=== PATIENT | male | born 1975 | race Hispanic/Latino ===

== ENCOUNTER 2017-06-03 06:56 | Emergency (ER) | payer OTHER ==
--- NOTE | 2017-06-03 08:11 | ED PDOC ---
HPI: General Adult Time Seen by Provider: 06/03/17 08:00 Chief Complaint (Nursing): ENT Problem Chief Complaint (Provider): ENT Problem History Per: Patient History/Exam Limitations: no limitations Onset/Duration Of Symptoms: Days (x 2) Current Symptoms Are (Timing): Still Present Additional Complaint(s): 42 year old male who presents to the ED complaining of a mass on the right side of his neck, onset 2 days ago. Patient reports that he began to notice the mass two days ago and it has since grown significantly, He describes the mass as "tender". He says that it hurts when he chews. Reports normal swallowing and breathing. The patient saw an urgent care doctor two days ago who measured the mas at 1 cm. Presently the mass is estimated to be 3-4 cm. Denies tooth ache or any recent dental work. PMD: Dr. Vani Hull MD Past Medical History Reviewed: Historical Data, Nursing Documentation, Vital Signs Vital Signs: Last Vital Signs Temp 98.7 F 06/03/17 11:52 Pulse 89 06/03/17 11:52 Resp 19 06/03/17 11:52 BP 118/79 06/03/17 11:52 Pulse Ox 96 06/03/17 14:30 - Medical History PMH: Depression, Gall Bladder Disease, Hepatitis (C) - Surgical History Surgical History: Hernia Repair - Family History Family History: States: No Known Family Hx - Home Medications Home Medications: Ambulatory Orders Medication Instructions Recorded No Known Home Med 06/03/17 - Allergies Allergies/Adverse Reactions: Allergies Allergy/AdvReac Type Severity Reaction Status Date / Time Penicillins Allergy ANGIOEDEMA Verified 06/03/17 07:08 Review of Systems ROS Statement: Except As Marked, All Systems Reviewed And Found Negative Musculoskeletal: Positive for: Neck Pain (from mass growing on neck) Physical Exam - Reviewed Nursing Documentation Reviewed: Yes Vital Signs Reviewed: Yes - Physical Exam Appears: Positive for: Non-toxic, No Acute Distress Head Exam: Positive for: ATRAUMATIC, NORMOCEPHALIC Skin: Positive for: Normal Color, Warm, Dry Eye Exam: Positive for: Normal appearance, PERRL ENT: Positive for: Normal ENT Inspection, Pharynx Is (normal; uvula midline). Negative for: Nasal Congestion, Pharyngeal Erythema, Tonsillar Exudate, Tonsillar Swelling Neck: Positive for: Painless ROM (3-4 cm tender mass on right side]). Negative for: Normal Cardiovascular/Chest: Positive for: Regular Rate, Rhythm. Negative for: Murmur Respiratory: Positive for: Normal Breath Sounds. Negative for: Wheezing Gastrointestinal/Abdominal: Positive for: Normal Exam, Soft Back: Positive for: Normal Inspection. Negative for: L CVA Tenderness, R CVA Tenderness, Vertebral Tenderness Extremity: Positive for: Normal ROM Neurologic/Psych: Positive for: Alert, Oriented - Laboratory Results Result Diagrams: 06/03/17 08:24 06/03/17 08:24 - ECG O2 Sat by Pulse Oximetry: 96 (RA) Pulse Ox Interpretation: Normal Medical Decision Making Medical Decision Making: Time: 08:03 Initial Plan: Right submandibular lymphadenopathy r/o Bailey r/o abscess --CT neck soft tissue --CMP --CBC --Bailey (Infectious disease) Accession No. 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 Regional asymmetrical right sided parapharyngeal lymphatic soft tissue fullness as detailed above -obliterating the right piriform sinus. Concomitant pathology here - not excluded. ENT consultation follow-up recommended The findings regarding the right submandibular proper may relate to mumps and/ or mononucleosis. Inflammatory changes affect the right submandibular fat, the right platysmas muscle and the right subcutaneous fat. A cellulitis here and/ or lymphedema here is inferred. No abscess seen . No intrinsic right submandibular mass appreciated. Diffuse asymmetrical swelling enlargement of the right submandibular gland is suggested Patient's Bailey results came back positive. CT results reviewed with Radiologist Dr. Moss and she just recommends ENT follow up but no abscess or anything urgent. Airway patent. Case discussed with patient and his . I explained that there are some findings on the CT that need ENT follow up and gave them discharge instructions with Dr. Engel for follow up. They were advised on mono supportive care measures especially to keep hydrated. They are aware of possible of being contagious and to avoid any potential activities that may injure abdomen. Work note provided. On reevaluation, he is comfortable and tolerating at normal speech. No trouble breathing. Will have him follow up also with his PMD. Scribe Attestation: Documented by Alena Ayers, acting as a scribe for Oral Condon DO Provider Scribe Attestation: All medical record entries made by the Scribe were at my direction and personally dictated by me. I have reviewed the chart and agree that the record accurately reflects my personal performance of the history, physical exam, medical decision making, and the department course for this patient. I have also personally directed, reviewed, and agree with the discharge instructions and disposition. Disposition - Clinical Impression Clinical Impression: EBV (Joseph-Sawant virus) viremia - Disposition Referrals: Vani Hull MD [Medical Doctor] - Robert Engel MD [Staff Provider] - Disposition: Routine/Home Disposition Time: 11:45 Condition: IMPROVED Additional Instructions: Mr Lockett, thank you for letting us take care of you today. Your provider was Dr. Condon. You were treated for Bailey, enlarged lymph node. The emergency medical care you received today was directed at your acute symptoms. If you were prescribed any medication, please fill it and take as directed. It may take several days for your symptoms to resolve. Return to the Emergency Department if your symptoms worsen, do not improve, or if you have any other problems. Make sure to make an appointment to follow up with an ENT specialist in 1 week. Please contact your doctor or call one of the physicians/clinics you have been referred to that are listed on the Patient Visit Information form that is included in your discharge packet. Bring any paperwork you were given at discharge with you along with any medications you are taking to your follow up visit. Our treatment cannot replace ongoing medical care by a primary care provider (PCP) outside of the emergency department. Thank you for allowing the [facility] team to be part of your care today. If you had an X-Ray or CT scan: A Radiologist will review the ED reading if any change in treatment is needed we will contact you. If you had a blood, urine, or wound culture: It will take several days for the results, if any change in treatment is needed we will contact you. If you had an STI test: It will take 48 hours for the results. Please call after 1 week if you have not heard back. Instructions: Mononucleosis (ED) Forms: [employer] (Arabic), [facility] ED School/Work Excuse - POA Present On Arrival: None
[2017-06-03 08:33] LABS: HEMOGLOBIN 14.9 g/dL (12.0-18.0); MEAN CELL VOLUME 83.3 fl (80.0-94.0); MEAN CORPUSCULAR HEMOGLOBIN 28.9 pg (27.0-31.0); MEAN CORPUSCULAR HGB CONC 34.7 g/dL (33.0-37.0); RBC 5.16 Mil/uL (4.40-5.90); RED CELL DISTRIBUTION WIDTH 14.4 % (11.5-14.5); WHITE BLOOD COUNT 8.8 K/uL (4.8-10.8)
[2017-06-03 08:54] LABS: ALB/GLOB RATIO 1.3 (1.0-2.1); ALBUMIN 4.1 g/dL (3.5-5.0); ALT/SGPT 40 U/L (21-72); AST/SGOT 20 U/L (17-59); BLOOD UREA NITROGEN 18 mg/dl (9-20); CALCIUM 9.4 mg/dL (8.4-10.2); GFR AFRICAN-AMERICAN > 60; GFR NON-AFRICAN AMERICAN > 60
[2017-06-03] MEDS ORDERED: Iohexol 300 100 ML IJ ONE (09:19)
[2017-06-03] MEDS ORDERED: Sodium Chloride 0.9% 50 ML IV ONE (09:19)
--- NOTE | 2017-06-03 11:47 | CT ---
PROCEDURE: CT NECK WITH CONTRAST HISTORY: right subman mass x 2 days COMPARISON: None TECHNIQUE: CT of the neck with intravenous contrast. Coronal and sagittal reformats generated. Intravenous contrast dose: 95 cc Omnipaque 300 Radiation dose: DLP 549 mGy-cm This CT exam was performed using one or more of the following dose reduction techniques: Automated exposure control, adjustment of the mA and/or kV according to patient size, and/or use of iterative reconstruction technique. FINDINGS: Dental amalgam artifact an obscures some of the oral cavity NASOPHARYNX: Unremarkable. SUPRAHYOID NECK: Unremarkable oral cavity. There is asymmetrical fullness to the parapharyngeal lymphatic soft tissue also including the lingular base. There is asymmetrical right sided lymphatic lending soft tissue fullness continues inferiorly along the right parapharyngeal soft tissues down to the hyoid bone level with obliteration of the right piriform sinus. The soft tissue asymmetrical right-sided fullness blends with the soft tissue surrounding the right hyoid bone under than further laterally contiguous with the asymmetrically enlarged right mandibular gland. No discrete abscess is noted. sp INFRAHYOID NECK: The above asymmetries/ obliteration of the air within the right piriform sinus may contribute to some minimal distorting of the right false vocal cords. This is minimal at most FNA. True cords appear unremarkable. GLANDS: Parotid and left submandibular glands unremarkable. Normal size thyroid gland, without nodule. There is asymmetrical prominence of the right submandibular gland without focal right submandibular mass per se identified. On axial series 2, image 55 the right submandibular gland measures 3.5 x 2.3 cm whereas the left measures 2.3 x 1.4 cm. There is right submandibular gland surrounding fat infiltration and right platysmal surrounding inflammatory changes extending into the overlying right skin subcutaneous fat (axial series 2 image 55). There is minimal right strap muscle tear inflammatory changes in the surrounding fat is well suggested this is at the thyroid cartilage level. . No dilated salivary gland ducts or gross calculi here suggested. LYMPH NODES: Bilateral cervical lymph nodes are present. Hyperplastic lymph nodes are favored. These are at the jugulodigastric- - level 2 level most notably CERVICAL SPINE: No fracture or focal lesion. VASCULAR STRUCTURES: Unremarkable. OTHER FINDINGS: None. IMPRESSION: Asymmetrically/swollen appearing right submandibular gland with regional benign hyperplastic appearing lymph nodes. Regional asymmetrical right sided parapharyngeal lymphatic soft tissue fullness as detailed above -obliterating the right piriform sinus. Concomitant pathology here - not excluded. ENT consultation follow-up recommended The findings regarding the right submandibular proper may relate to mumps and/or mononucleosis. Inflammatory changes affect the right submandibular fat, the right platysmas muscle and the right subcutaneous fat. A cellulitis here and/or lymphedema here is inferred. No abscess seen . No intrinsic right submandibular mass appreciated. Diffuse asymmetrical swelling enlargement of the right submandibular gland is suggested .
[2017-06-03 11:53] VITALS: BP 118/79; PULSE 89; RESP 19; TEMP 98.7
[2017-06-03 14:17] VITALS: O2SAT 96
== END 2017-06-03 11:53 | disposition home or self-care (01) ==
LOC: H.ER 06:56
DX: B27.90 Infectious mononucleosis, unspecified without complication (principal); I89.0 Lymphedema, not elsewhere classified; Z88.0 Allergy status to penicillin; F32.9 Major depressive disorder, single episode, unspecified
CPT/HCPCS: 70491; 80053; 85027; 86308; 87040; 99283; Q9967

== ENCOUNTER 2017-07-17 09:33 | Emergency (ER) | payer OTHER ==
[2017-07-17 09:38] VITALS: BMI 30.6
[2017-07-17 09:39] VITALS: BP 124/87; PULSE 101; RESP 17; TEMP 98; O2SAT 97
--- NOTE | 2017-07-17 10:22 | RAD ---
HISTORY: SOB after drug use COMPARISON: No prior. TECHNIQUE: Chest PA and lateral FINDINGS: LUNGS: No active pulmonary disease. PLEURA: No significant pleural effusion identified. No pneumothorax apparent. CARDIOVASCULAR: Normal. OSSEOUS STRUCTURES: No significant abnormalities. VISUALIZED UPPER ABDOMEN: Normal. OTHER FINDINGS: None. IMPRESSION: No active disease.
[2017-07-17] MEDS ORDERED: Sodium Chloride 0.9% 1,000 ML IV STA (10:33)
[2017-07-17 10:35] LABS: BASO # 0.1 K/uL (0.0-0.2); BASO % 0.9 % (0.0-2.0); EOS % 0.1 % (0.0-4.0); HEMOGLOBIN 15.4 g/dL (12.0-18.0); LYMPH % 18.2 % (20.0-40.0); MEAN CELL VOLUME 84.9 fl (80.0-94.0); MEAN CORPUSCULAR HEMOGLOBIN 29.5 pg (27.0-31.0); MEAN CORPUSCULAR HGB CONC 34.7 g/dL (33.0-37.0); MEAN PLATELET VOLUME 7.5 fl (7.2-11.7); MONO # 0.8 K/uL (0.0-0.8); MONO % 7.6 % (0.0-10.0); NEUT # 8.1 K/uL (1.8-7.0); NEUT % 73.2 % (50.0-75.0); RBC 5.22 Mil/uL (4.40-5.90); RED CELL DISTRIBUTION WIDTH 13.1 % (11.5-14.5); WHITE BLOOD COUNT 11.1 K/uL (4.8-10.8)
[2017-07-17 10:45] LABS: ALB/GLOB RATIO 1.3 (1.0-2.1); ALBUMIN 4.5 g/dL (3.5-5.0); ALT/SGPT 35 U/L (21-72); AST/SGOT 24 U/L (17-59); BLOOD UREA NITROGEN 11 mg/dl (9-20); CALCIUM 9.7 mg/dL (8.4-10.2); GFR AFRICAN-AMERICAN > 60; GFR NON-AFRICAN AMERICAN > 60
[2017-07-17 10:53] LABS: ACETAMINOPHEN < 10.0 ug/ml (10.0-30.0); SALICYLATE < 1.0 mg/dl
[2017-07-17 11:10] LABS: BARBITURATES, UR NEGATIVE (NEGATIVE); BENZODIAZEPINES, UR NEGATIVE (NEGATIVE); OPIATES, UR NEGATIVE (NEGATIVE); PHENCYCLIDINE, UR NEGATIVE (NEGATIVE)
--- NOTE | 2017-07-17 11:11 | ED PDOC ---
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 PT states he began using again because his left him. No chest pain. 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 Past Medical History Reviewed: Historical Data, Nursing Documentation, Vital Signs Vital Signs: Last Vital Signs Temp 98 F 07/17/17 09:38 Pulse 101 H 07/17/17 09:38 Resp 17 07/17/17 09:38 BP 124/87 07/17/17 09:38 Pulse Ox 97 07/17/17 09:38 - Medical History PMH: Depression, Gall Bladder Disease, Hepatitis (C) - Surgical History Surgical History: Hernia Repair - Family History Family History: States: No Known Family Hx - Living Arrangements Living Arrangements: With Family - Social History Current smoker - smoking cessation education provided: No Alcohol: None Drugs: Cocaine - Home Medications Home Medications: Ambulatory Orders Medication Instructions Recorded No Known Home Med 06/03/17 - Allergies Allergies/Adverse Reactions: Allergies Allergy/AdvReac Type Severity Reaction Status Date / Time Penicillins Allergy ANGIOEDEMA Verified 06/03/17 07:08 Review of Systems ROS Statement: Except As Marked, All Systems Reviewed And Found Negative Constitutional: Negative for: Fever Cardiovascular: Negative for: Chest Pain Respiratory: Positive for: Shortness of Breath. Negative for: Cough Gastrointestinal: Negative for: Nausea, Abdominal Pain Physical Exam - Reviewed Nursing Documentation Reviewed: Yes Vital Signs Reviewed: Yes - Physical Exam Appears: Positive for: Well, Non-toxic, No Acute Distress Head Exam: Positive for: ATRAUMATIC, NORMAL INSPECTION, NORMOCEPHALIC Skin: Positive for: Normal Color, Warm, DRY Eye Exam: Positive for: Normal appearance, EOMI, PERRL ENT: Positive for: Normal ENT Inspection Neck: Positive for: Normal, Painless ROM Cardiovascular/Chest: Positive for: Regular Rate, Rhythm Respiratory: Positive for: CNT, Normal Breath Sounds Gastrointestinal/Abdominal: Positive for: Normal Exam, Bowel Sounds, Soft Back: Positive for: Normal Inspection Extremity: Positive for: Normal ROM Neurologic/Psych: Positive for: Alert, Oriented - Laboratory Results Result Diagrams: 07/17/17 10:25 07/17/17 10:25 - ECG O2 Sat by Pulse Oximetry: 97 Medical Decision Making Medical Decision Making: Pt reports feeling better on re-evaluation. Tropinin (-) No chest pain. Pt denies HI/SI Disposition - Clinical Impression Clinical Impression: Cocaine abuse - Disposition Referrals: Vani Hull MD [Primary Care Provider] - Disposition: Routine/Home Disposition Time: 12:36 Condition: STABLE Instructions: Cocaine Forms: [facility] (Greek)
[2017-07-17] MEDS ORDERED: Potassium Chloride 20 mEq ER Tab PO STA (12:17)
[2017-07-17] MEDS ORDERED: Potassium Chloride 20 mEq ER Tab PO ONE (12:23)
--- NOTE | 2017-07-17 18:56 | CARD ---
APPROVED REPORT EKG Measurement Heart [id number] <Conclusion> Normal sinus rhythm Possible Left atrial enlargement Incomplete right bundle branch block Abnormal ECG
== END 2017-07-17 12:45 | disposition home or self-care (01) ==
LOC: SUPCPDRO 09:33 → H.ER 09:33
DX: F14.10 Cocaine abuse, uncomplicated (principal)
CPT/HCPCS: 71046; 80053; 80320; 80324; 80329; 80345; 80346; 80349; 80353; 80358; 80361; 83992; 84484; 85025; 93005; 99284; J7040